=== PATIENT | female | born 1990 | race African-American/Black ===

== ENCOUNTER 2024-05-23 18:04 | Inpatient (IN) | payer MEDICAID ==
[~2024-05-23] VITALS: Ht 152.4 cm; Wt 48.1 kg
[~2024-05-23 18:04] MED LIST: IBUP-779 PO; IRON-15 PO; MULT-1146 PO
[2024-05-23 19:44] LABS: CLARITY URINE CLOUDY (CLEAR); COLOR URINE YELLOW (YELLOW); GLUCOSE URINE NEGATIVE (NEGATIVE); KETONES URINE NEGATIVE (NEGATIVE); LEUKOCYTE ESTERASE URINE TRACE (NEGATIVE); NITRITE URINE NEGATIVE (NEGATIVE); OCCULT BLOOD URINE NEGATIVE (NEGATIVE); PH URINE 6.5 (4.5-8.0); PROTEIN URINE 1+ (NEGATIVE)
[2024-05-23 19:50] LABS: BASOPHILS % 0.7 % (0.0-2.0); DIFFERENTIAL COMMENT 0; LYMPHOCYTES % 7.6 % (20.0-50.0); MEAN CORPUSCULAR HEMOGLOBIN 25.2 pg (28.0-32.0); MEAN CORPUSCULAR HGB CONC 31.7 g/dL (31.0-37.0); MEAN CORPUSCULAR VOLUME 79.5 fL (81.0-99.0); MEAN PLATELET VOLUME 6.7 fl (7.4-10.4); MONOCYTES % 4.2 % (2.0-8.0); NEUTROPHILS % 87.5 % (40.0-76.0); PLATELET 618 x1000/uL (130-400); RED BLOOD CELL COUNT 2.54 mill/uL (4.2-5.4); RED CELL DISTRIBUTION WIDTH 16.8 % (11.6-14.6); WHITE BLOOD COUNT 16.9 x1000/uL (4.5-11.0)
[2024-05-23] MEDS: MORPHINE SULFATE 4 MG/ML INJ (FOR IV/IM USE) IV ONE ×2 (19:52→22:15)
[2024-05-23 19:55] LABS: CHLORIDE 104 mEq/L (98-107); POTASSIUM 3.7 mEq/L (3.5-5.1); SODIUM 141 mEq/L (136-145)
[2024-05-23 19:57] LABS: CARBON DIOXIDE 26 mEq/L (21-32)
[2024-05-23 19:58] LABS: CALCIUM 8.4 mg/dL (8.7-10.4)
[2024-05-23 20:00] LABS: HEMATOCRIT. 20.2 % (36.0-48.0); HEMOGLOBIN. 6.4 g/dL (12.0-16.0)
[2024-05-23 20:02] LABS: CREATININE 0.7 mg/dL (0.6-1.0)
[2024-05-23 20:03] LABS: GLUCOSE 130 mg/dL (70-105); LACTIC ACID 2.8 mmol/L (0.4-2.0); UREA NITROGEN BLOOD 16 mg/dL (9-23)
[2024-05-23 20:04] LABS: ALANINE AMINOTRANSFERASE 8 IU/L (10-49); ALBUMIN 2.9 g/dL (3.2-4.8); ASPARTATE AMINOTRANSFERASE 28 IU/L (<34)
[2024-05-23 20:05] LABS: BILIRUBIN TOTAL 0.2 mg/dL (0.1-1.0); PROTEIN TOTAL 6.4 g/dL (6.0-8.3)
[2024-05-23 20:11] LABS: BACTERIA URINE 1+; RBC URINE 0-2 /hpf (0-2); WBC URINE 0-2 /hpf (0-2); YEAST URINE NONE SEEN
[2024-05-23 20:12] LABS: SQUAMOUS EPITHELIAL CELL URINE FEW /lpf (RARE/1+)
[2024-05-23 20:16] LABS: HCG SCREEN NEGATIVE
[2024-05-23 20:37] LABS: BILIRUBIN DIRECT < 0.1 mg/dL (<=3.0)
[2024-05-23] MEDS: VANCOMYCIN 1G PREMIX 200 ML IV ONE (21:00)
[2024-05-23] MEDS: SODIUM CHLORIDE 0.9% (SEPSIS BOLUS) IV ONE (21:05)
[2024-05-23] MEDS: PIPERACILLIN/TAZO 3.375G/50ML 50 ML IV ONE (21:41)
[2024-05-23] MEDS: IOHEXOL-300 100 ML BOTTLE ONE (23:36)
[2024-05-24] MEDS: HYDROCODONE/ACETAMINOPHEN 5/325MG TABLET PO PRN (05:37)
[2024-05-24] MEDS ORDERED: NALOXONE HCL 0.4MG/ML VIAL IV PRN (05:45)
[2024-05-24 16:45] VITALS: BP 125/80; PULSE 130; RESP 18; TEMP 36.6; O2SAT 100
[2024-05-24] MEDS ORDERED: ONDANSETRON HCL 4MG/2ML INJ IV PRN (17:15)
[2024-05-24 18:00] VITALS: BP 118/70; PULSE 132; RESP 19; TEMP 36.7; O2SAT 100
[2024-05-24 18:31] VITALS: BP 125/80; PULSE 128; RESP 18; TEMP 36.6
[2024-05-24 20:00] VITALS: BP 106/60; PULSE 133; RESP 20; TEMP 38.1; O2SAT 100
[2024-05-24] MEDS: MORPHINE SULFATE 15MG TABLET SR PO SCH (20:17)
[2024-05-24] MEDS: PIPERACILLIN/TAZO 3.375G/50ML 50 ML IV SCH (22:02)
[2024-05-25] VITALS: BP 97/50; PULSE 135; RESP 17; TEMP 37.7; O2SAT 98
[2024-05-25 04:00] VITALS: BP 99/47; PULSE 134; RESP 18; TEMP 36.6; O2SAT 97
[2024-05-25 06:24] LABS: BASOPHILS % 0.4 % (0.0-2.0); EOSINOPHILS % 0.1 % (0.0-5.0); HEMATOCRIT. 21.7 % (36.0-48.0); HEMOGLOBIN. 7.1 g/dL (12.0-16.0); LYMPHOCYTES % 8.1 % (20.0-50.0); MEAN CORPUSCULAR HEMOGLOBIN 26.2 pg (28.0-32.0); MEAN CORPUSCULAR HGB CONC 32.6 g/dL (31.0-37.0); MEAN CORPUSCULAR VOLUME 80.2 fL (81.0-99.0); MEAN PLATELET VOLUME 7.1 fl (7.4-10.4); MONOCYTES % 1.7 % (2.0-8.0); NEUTROPHILS % 89.7 % (40.0-76.0); PLATELET 438 x1000/uL (130-400); RED CELL DISTRIBUTION WIDTH 16.9 % (11.6-14.6)
[2024-05-25 06:33] LABS: CALCIUM 8.1 mg/dL (8.7-10.4); CARBON DIOXIDE 24 mEq/L (21-32); CHLORIDE 100 mEq/L (98-107); POTASSIUM 3.1 mEq/L (3.5-5.1); SODIUM 134 mEq/L (136-145)
[2024-05-25 06:38] LABS: CREATININE 0.7 mg/dL (0.6-1.0)
[2024-05-25 06:39] LABS: GLUCOSE 86 mg/dL (70-105); UREA NITROGEN BLOOD 7 mg/dL (9-23)
[2024-05-25 08:09] VITALS: BP 96/44; PULSE 130; RESP 20; TEMP 37.1; O2SAT 100
[2024-05-25 12:00] VITALS: BP 98/59; PULSE 119; RESP 18; TEMP 36.3; O2SAT 96
[2024-05-25 16:00] VITALS: BP 93/52; PULSE 129; RESP 18; TEMP 36.3; O2SAT 96
[2024-05-25] MEDS: POTASSIUM CHLORIDE 20MEQ TABLET SR PO NR (16:04)
[2024-05-25] MEDS: MORPHINE SULFATE 2 MG/ML INJ (NOT FOR IM USE) IV NR (16:31)
[2024-05-25 20:19] VITALS: BP 102/49; PULSE 132; RESP 18; TEMP 36.4; O2SAT 97
[2024-05-25] MEDS: MORPHINE SULFATE 30MG TABLET SR PO SCH (21:47)
[2024-05-26 00:23] VITALS: BP 102/56; PULSE 120; RESP 18; TEMP 37.2; O2SAT 97
[2024-05-26 04:00] VITALS: BP 94/54; PULSE 124; RESP 19; TEMP 36.3; O2SAT 97
[2024-05-26 08:08] VITALS: BP 88/40; PULSE 129; RESP 18; TEMP 36.8; O2SAT 99
[2024-05-26 11:15] LABS: BASOPHILS % 0.5 % (0.0-2.0); DIFFERENTIAL COMMENT 0; EOSINOPHILS % 1.9 % (0.0-5.0); HEMOGLOBIN. 7.5 g/dL (12.0-16.0); LYMPHOCYTES % 9.9 % (20.0-50.0); MEAN CORPUSCULAR HEMOGLOBIN 26.1 pg (28.0-32.0); MEAN CORPUSCULAR HGB CONC 32.8 g/dL (31.0-37.0); MEAN CORPUSCULAR VOLUME 79.6 fL (81.0-99.0); MEAN PLATELET VOLUME 7.1 fl (7.4-10.4); MONOCYTES % 2.5 % (2.0-8.0); NEUTROPHILS % 85.2 % (40.0-76.0); PLATELET 393 x1000/uL (130-400); RED CELL DISTRIBUTION WIDTH 16.1 % (11.6-14.6); WHITE BLOOD COUNT 12.1 x1000/uL (4.5-11.0)
[2024-05-26 11:16] VITALS: BP 98/56; PULSE 113; RESP 18; TEMP 36.6; O2SAT 99
[2024-05-26 11:28] LABS: CALCIUM 8.4 mg/dL (8.7-10.4); CARBON DIOXIDE 25 mEq/L (21-32); CHLORIDE 99 mEq/L (98-107); POTASSIUM 3.5 mEq/L (3.5-5.1); SODIUM 133 mEq/L (136-145)
[2024-05-26 11:33] LABS: CREATININE 0.7 mg/dL (0.6-1.0)
[2024-05-26 11:34] LABS: GLUCOSE 96 mg/dL (70-105); UREA NITROGEN BLOOD 9 mg/dL (9-23)
[2024-05-26 15:45] VITALS: BP 96/53; PULSE 120; RESP 18; TEMP 36.7; O2SAT 99
[2024-05-26 20:00] VITALS: BP 83/57; PULSE 121; RESP 20; TEMP 36.5; O2SAT 97
[2024-05-27] VITALS: BP 90/51; PULSE 99; RESP 20; TEMP 36.3; O2SAT 99
[2024-05-27 04:00] VITALS: BP 96/57; PULSE 129; RESP 20; TEMP 36.5; O2SAT 98
[2024-05-27 08:00] VITALS: BP 95/55; PULSE 121; RESP 18; TEMP 36.4; O2SAT 100
[2024-05-27 09:41] LABS: CARBON DIOXIDE 27 mEq/L (21-32); CHLORIDE 99 mEq/L (98-107); POTASSIUM 3.4 mEq/L (3.5-5.1); SODIUM 134 mEq/L (136-145)
[2024-05-27 09:43] LABS: CALCIUM 8.5 mg/dL (8.7-10.4)
[2024-05-27 09:46] LABS: BASOPHILS % 0.5 % (0.0-2.0); DIFFERENTIAL COMMENT 0; EOSINOPHILS % 1.9 % (0.0-5.0); HEMATOCRIT. 24.7 % (36.0-48.0); HEMOGLOBIN. 8.2 g/dL (12.0-16.0); LYMPHOCYTES % 12.8 % (20.0-50.0); MEAN CORPUSCULAR HEMOGLOBIN 26.3 pg (28.0-32.0); MEAN CORPUSCULAR HGB CONC 33.1 g/dL (31.0-37.0); MEAN CORPUSCULAR VOLUME 79.3 fL (81.0-99.0); MEAN PLATELET VOLUME 7.4 fl (7.4-10.4); MONOCYTES % 4.1 % (2.0-8.0); NEUTROPHILS % 80.7 % (40.0-76.0); PLATELET 447 x1000/uL (130-400); RED BLOOD CELL COUNT 3.12 mill/uL (4.2-5.4); RED CELL DISTRIBUTION WIDTH 16.4 % (11.6-14.6)
[2024-05-27 09:47] LABS: CREATININE 0.7 mg/dL (0.6-1.0); GLUCOSE 119 mg/dL (70-105); UREA NITROGEN BLOOD 10 mg/dL (9-23)
[2024-05-27 12:00] VITALS: BP 95/56; PULSE 110; RESP 18; TEMP 36.4; O2SAT 100
[2024-05-27] MEDS: POTASSIUM CHLORIDE 20MEQ TABLET SR PO NR (12:50)
[2024-05-27] MEDS ORDERED: AMOX1TAB16 MT (13:24)
[2024-05-27 13:58] VITALS: BP 95/56; PULSE 110; TEMP 97.5; O2SAT 100
[2024-05-27 16:09] VITALS: BP 98/56; PULSE 109; RESP 18; TEMP 36.4; O2SAT 100
== END 2024-05-27 16:40 | disposition home or self-care (01) | DRG 720 ==
LOC: ER 18:04 → 7WST 05-24 01:12
PROVIDERS: ADMIT Internal Medicine; ATTEND Internal Medicine
PROC: 30233N1 Transfusion of Nonautologous Red Blood Cells into Peripheral Vein, Percutaneous Approach (ICD-10-PCS; principal; 2024-05-23)
DX: A41.9 Sepsis, unspecified organism (principal); C53.9 Malignant neoplasm of cervix uteri, unspecified; D64.9 Anemia, unspecified; D75.839 Thrombocytosis, unspecified; N39.0 Urinary tract infection, site not specified; Z79.899 Other long term (current) drug therapy; Z90.710 Acquired absence of both cervix and uterus; Z93.6 Other artificial openings of urinary tract status
CPT/HCPCS: 36415; 74177; 80048; 80076; 81003; 83605; 84145; 84703; 85025; 86850; 86900; 86920; 99291; J2270; J2543; J3370; J7030; P9016; Q9967